=== PATIENT | female | born 1985 | race Caucasian/White ===

== ENCOUNTER 2022-11-25 17:44 | Emergency (ER) | payer OTHER, SELFPAY ==
[2022-11-25 17:52] VITALS: BP 148/90; PULSE 72; RESP 16; TEMP 36.4; O2SAT 98; BMI 35.4
--- NOTE | 2022-11-25 18:07 | CRLHL7_ITS ---
For Patients: As a result of the Century Cures Act, medical imaging exams and procedure reports are released immediately into your electronic medical record. You may view this report before your referring provider. If you have questions, please contact your health care provider. INDICATION: Right upper quadrant pain. Assess for gallstones. TECHNIQUE: Transabdominal imaging. COMPARISON: None. FINDINGS: The majority of the pancreas is obscured by bowel gas. The proximal abdominal aorta is normal in caliber. The proximal IVC is patent. There is diffusely increased echogenicity of the liver parenchyma, likely related fatty infiltration. No sludge or stones are seen within the gallbladder. No gallbladder wall thickening. No bile duct dilatation. The CBD measures 2 mm. Right kidney is normal size with no hydronephrosis. IMPRESSION: 1. No sonographic evidence of cholelithiasis or acute cholecystitis. 2. Fatty liver. Dictated by Vitaliy Quiñones MD @ 11/25/2022 8:02:44 PM (Electronically Signed)
--- NOTE | 2022-11-25 18:07 | ED_ITS ---
HPI - General Adult General Chief complaint: Abdominal Pain Stated complaint: Stomach pain that won't go away, nausea Time Seen by Provider: 11/25/22 17:47 Source: patient Mode of arrival: ambulatory Limitations: no limitations History of Present Illness HPI narrative: 37-year-old female with a history of hypertension, hyperlipidemia, hypothyroidism and vitamin-D deficiency presents today with abdominal discomfort going on for approximately 6 days. Pain comes and goes. Located across the ?entire abdomen?. I asked the patient to point to the area and she points to the epigastric region. She thinks that perhaps eating may make it worse but uncertain. When the pain comes it generally does not last more than an hour. Sometimes she gets nauseated, no vomiting. This all started when she had cramping and diarrhea a week ago with the diarrhea lasted 2 days and has now resolved. She has been having normal bowel movements. She denies any urinary symptoms. She denies , had a vasectomy. She denies pain in the pelvic region. Abdominal surgeries consist of C-sections. Related Data Home Medications Medication Instructions Recorded Confirmed atenolol 25 mg tablet 25 mg PO DAILY 11/25/22 11/25/22 atorvastatin 10 mg tablet (Lipitor) 10 mg PO DAILY 11/25/22 11/25/22 fluoxetine 40 mg capsule (Prozac) 40 mg PO DAILY 11/25/22 11/25/22 levothyroxine 125 mcg capsule 125 mcg PO DAILY 11/25/22 11/25/22 omeprazole magnesium 20 mg 20 mg PO DAILY 11/25/22 11/25/22 tablet,delayed release (Prilosec OTC) Previous Rx's Medication Instructions Recorded sucralfate 1 gram tablet (Carafate) 1 g PO QID PRN #30 tabs 11/25/22 Allergies Allergy/AdvReac Type Severity Reaction Status Date / Time penicillin G Allergy Intermediate Difficulty Verified 11/25/22 18:02 Breathing azithromycin AdvReac Intermediate Rash Verified 11/25/22 18:02 cephalexin [From Keflex] AdvReac Intermediate Rash Verified 11/25/22 18:02 Review of Systems Status of ROS: Reports: 10 or more systems reviewed and unremarkable except as noted in History and below PFSH PFSH Social History Smoking Status: Never smoker How often do you have a drink containing alcohol: 2-4 times a month AUDIT-C Alcohol total score: 2 Non-prescribed substance use: denies use Exam Narrative: Exam Narrative: Overweight, well-developed patient in no acute distress. Alert and oriented. Answers questions appropriately. Mood and affect are appropriate. Thoughts are goal oriented and rational. No tangential or magical thinking noted. Patient speaks in full sentences without needing to catch their breath. HEENT: Normocephalic atraumatic. Pupils are equally round reactive to light. Extraocular muscles are intact. Conjunctivae are moist without any icterus noted. Moist mucous membranes. Posterior pharynx is normal. Neck is soft without any lymphadenopathy or thyromegaly. No masses are appreciated. Cardiovascular: Heart is regular rate and rhythm S1 and S2 are present without any murmurs. Lungs: Clear to auscultation bilaterally no wheezes rhonchi or rales are appreciated. Patient takes deep breaths without any discomfort. Abdomen: Soft and nontender nondistended with normal bowel sounds. No guarding or rebound. No masses or organomegaly appreciated. She does have mild discomfort in the epigastric region. Negative Jeronimo sign. Extremities: Bilateral lower extremities are without edema. Normal DP and PT pulses. Skin: Well perfused without any obvious rashes. Const: Vital Signs, click to edit/add: Vital Signs - 24 hr 11/25/22 17:52 Temperature 97.6 F Pulse Rate [Pulse Oximeter] 72 Respiratory Rate 16 Blood Pressure [Ri ght Upper Arm] 148/90 H Pulse Oximetry 98 Oxygen Delivery Me thod Room Air Course Course Hospital Course: Differential diagnosis at this time include gastritis, peptic ulcer disease, cholelithiasis. Less likely cholecystitis, pancreatitis, colitis. Labs were drawn. Ultrasound to rule out gallstones was ordered. Carafate was given x1. Ultrasound was unremarkable, labs were unremarkable. Vital Signs Vital signs: Initial Vital Signs Temperature 97.6 F 11/25/22 17:52 Temperature Source Temporal Artery Scan 11/25/22 17:52 Pulse Rate 72 11/25/22 17:52 Respiratory Rate 16 11/25/22 17:52 Blood Pressure 148/90 H 11/25/22 17:52 Blood Pressure Mean 109 H 11/25/22 17:52 Pulse Oximetry 98 11/25/22 17:52 Oxygen Delivery Method Room Air 11/25/22 17:52 Vital Signs Temperature 97.6 F 11/25/22 17:52 Pulse Rate 72 11/25/22 17:52 Respiratory Rate 16 11/25/22 17:52 Blood Pressure 148/90 H 11/25/22 17:52 Pulse Oximetry 98 11/25/22 17:52 Oxygen Delivery Method Room Air 11/25/22 17:52 Temperature 97.6 F 11/25/22 17:52 Pulse Rate 83 11/25/22 19:37 Respiratory Rate 18 11/25/22 19:37 Blood Pressure 143/101 H 11/25/22 19:37 Pulse Oximetry 96 11/25/22 19:37 Oxygen Delivery Method Room Air 11/25/22 19:37 Medical Decision Making MDM Narrative Medical decision making narrative: 37-year-old female with abdominal discomfort differential diagnosis discussed with patient, likely gastritis. Recommend Carafate up to q.i.d. p.r.n.. Start omeprazole daily for a couple of weeks. Of course return to the ER if she becomes worse. Patient was agreeable and had no other questions. Lab Data Lab results reviewed: Yes I reviewed the patient's lab results Labs: Lab Results 11/25/22 Range/Units 18:20 WBC 8.05 (4.50-11.00) K/uL RBC 3.96 L (4.00-5.20) m/uL Hgb 12.9 (12.0-16.0) gm/dL Hct 38.6 (33.0-51.0) % MCV 98 (80-100) fL MCH 33 (26-34) pg MCHC 33 (32-36) gm/dL RDW Coeff of Max 13.1 (11.5-15.5) % Plt Count 335 (140-440) K/uL Neut % (Auto) 57.9 (42.0-72.0) % Lymph % (Auto) 32.8 (20-44) % [place] % (Auto) 7.3 (0.0-11.0) % Eos % (Auto) 1.4 (0.0-7.0) % Baso % (Auto) 0.4 (0.0-3.0) % Neut # (Auto) 4.66 (1.7-7.0) K/uL Lymph # (Auto) 2.64 (0.90-2.90) K/uL [place] # (Auto) 0.60 (0.00-0.90) K/UL Eos # (Auto) 0.11 (0.00-0.50) K/uL Baso # (Auto) 0.03 (0.00-0.30) K/uL Sodium 137 (135-149) mmol/L Potassium 3.7 (3.6-5.1) mmol/L Chloride 106 (96-114) mmol/L Carbon Dioxide 26 (20-32) mmol/L BUN 9 (5-24) mg/dL Creatinine 0.5 (0.5-1.5) mg/dL Estimated Creat Clear 124.96 Estimated GFR 122 ml/min Glucose 113 (60-115) mg/dL Lactate 1.5 (0.5-1.9) mmol/L Calcium 8.7 (8.4-10.6) mg/dL Total Bilirubin 0.9 (0.1-1.5) mg/dL Direct Bilirubin 0.3 (0.0-0.5) mg/dL AST 35 (12-35) U/L ALT 34 (4-35) U/L Alkaline Phosphatase 115 (40-150) U/L C-Reactive Protein 0.7 (0.5-1.0) mg/dL Total Protein 7.4 (6.0-8.3) g/dL Albumin 4.4 (3.3-5.0) g/dL Lipase 86 (23-300) U/L HCG, Qual Negative (Negative) Imaging Data US - abdomen: Attestation: I have reviewed the pertinent imaging results. My impression: Unremarkable Discharge Plan Discharge Clinical Impression: Gastritis Patient Disposition: Home, Self-Care Condition: Stable Instructions: Gastritis (ED) Additional Instructions: Start omeprazole 20 mg daily for the next 2-4 weeks. Okay to take Carafate as needed when you are having discomfort. You should start to feel better in about 3-4 days. Return to the ER if you start to feel worse, or develops fevers or vomiting. Prescriptions: New sucralfate [Carafate] 1 gram tablet 1 g PO QID PRNQty: 30 0RF No Action levothyroxine 125 mcg capsule 125 mcg PO DAILY atenolol 25 mg tablet 25 mg PO DAILY fluoxetine [Prozac] 40 mg capsule 40 mg PO DAILY atorvastatin [Lipitor] 10 mg tablet 10 mg PO DAILY omeprazole magnesium [Prilosec OTC] 20 mg tablet,delayed release (DR/EC) 20 mg PO DAILY Stand Alone Forms: [employer] Info Instructions
[2022-11-25 18:24] LABS: Lactate* 1.5 mmol/L (0.5-1.9)
[2022-11-25 18:26] LABS: Basophils Absolute Auto 0.03 K/uL (0.00-0.30); Basophils Percent Auto 0.4 % (0.0-3.0); Eosinophils Absolute Auto 0.11 K/uL (0.00-0.50); Eosinophils Percent Auto 1.4 % (0.0-7.0); Hematocrit 38.6 % (33.0-51.0); Hemoglobin* 12.9 gm/dL (12.0-16.0); Immature Granulocytes Abs Auto 0.02 K/uL (0.00-0.30); Immature Granulocytes Pct Auto 0.2 %; Lymphocytes Absolute Auto 2.64 K/uL (0.90-2.90); Lymphocytes Percent Auto 32.8 % (20-44); Mean Corpuscular HGB Conc 33 gm/dL (32-36); Mean Corpuscular Hemoglobin 33 pg (26-34); Mean Corpuscular Volume 98 fL (80-100); Monocytes Percent Auto 7.3 % (0.0-11.0); Neutrophils Absolute Auto 4.66 K/uL (1.7-7.0); Neutrophils Percent Auto 57.9 % (42.0-72.0); Platelet Count* 335 K/uL (140-440); RDW Coefficient of Variation % 13.1 % (11.5-15.5); Red Blood Count 3.96 m/uL (4.00-5.20); White Blood Count* 8.05 K/uL (4.50-11.00)
[2022-11-25 18:27] LABS: Slide Review Reflex No
[2022-11-25] MEDS: SUCRALFATE 1 GM TABLET PO (18:35)
[2022-11-25 18:49] LABS: Albumin* 4.4 g/dL (3.3-5.0); Chloride* 106 mmol/L (96-114); Sodium* 137 mmol/L (135-149)
[2022-11-25 18:50] LABS: Potassium* 3.7 mmol/L (3.6-5.1)
[2022-11-25 18:52] LABS: Aspartate Amino Transferase* 35 U/L (12-35); Bilirubin Direct* 0.3 mg/dL (0.0-0.5); Bilirubin Total* 0.9 mg/dL (0.1-1.5); Carbon Dioxide* 26 mmol/L (20-32); Creatinine* 0.5 mg/dL (0.5-1.5); Est. Creatinine Clearance* 124.96; Estimated Glomerular Filt Rate 122 ml/min
[2022-11-25 18:53] LABS: Alanine Aminotransferase* 34 U/L (4-35); Alkaline Phosphatase* 115 U/L (40-150); Blood Urea Nitrogen* 9 mg/dL (5-24); Calcium* 8.7 mg/dL (8.4-10.6); Glucose* 113 mg/dL (60-115); Lipase* 86 U/L (23-300); Total Protein* 7.4 g/dL (6.0-8.3)
[2022-11-25 18:55] LABS: C Reactive Protein* 0.7 mg/dL (0.5-1.0)
[2022-11-25 19:01] LABS: HCG Qualitative* Negative (Negative)
[2022-11-25 19:37] VITALS: BP 143/101; PULSE 83; RESP 18; O2SAT 96
== END 2022-11-25 19:38 | disposition home or self-care (01) ==
PROVIDERS: Emergency Provider Family Medicine
DX: K29.70 Gastritis, unspecified, without bleeding (principal)
CPT/HCPCS: 36415; 76705; 80048; 80076; 83605; 83690; 84703; 85025; 86140; 99283; 99284; A9270